=== PATIENT | female | born 1965 ===

== ENCOUNTER 2018-09-01 08:37 | Inpatient (IN) | payer MEDICAID, OTHER ==
[~2018-09-01] VITALS: Ht 154.9 cm; Wt 50.0 kg
[2018-09-01 09:00] LABS: BASOPHILS % (AUTO) 0.7 % (0.0-2.0); EOSINOPHILS % (AUTO) 1.3 % (1.0-6.0); HEMATOCRIT 38.9 % (36-46); HEMOGLOBIN 12.9 g/dL (12.0-16.0); LYMPHOCYTES # (AUTO) 1.9 K/uL (1.0-4.8); LYMPHOCYTES % (AUTO) 24.3 % (22.0-44.0); MEAN CORPUSCULAR HEMOGLOBIN 28.5 pg (26.0-34.0); MEAN CORPUSCULAR HGB CONC 33.1 G/dL (31.0-37.0); MEAN CORPUSCULAR VOLUME 86 fL (80-100); MONOCYTES # (AUTO) 0.8 K/uL (0.1-1.0); MONOCYTES % (AUTO) 10.1 % (2.0-9.0); NEUTROPHILS # (AUTO) 4.9 K/uL (1.8-7.7); NEUTROPHILS % (AUTO) 63.6 % (40.0-70.0); PLATELET COUNT (AUTO) 300 K/uL (150-450); RED BLOOD CELL COUNT(AUTO) 4.53 MIL/uL (4.00-5.20); RED CELL DISTRIBUTION WIDTH 13.5 % (11.5-14.5)
[2018-09-01 09:08] LABS: AMPHET/METH SCREEN,URINE POSITIVE (NEGATIVE); BARBITURATE SCREEN, URINE NEGATIVE (NEGATIVE); BENZODIAZEPINES SCREEN,URINE NEGATIVE (NEGATIVE); CANNABINOID SCREEN,URINE NEGATIVE (NEGATIVE); COCAINE SCREEN,URINE NEGATIVE (NEGATIVE); METHADONE SCREEN, URINE NEGATIVE (NEGATIVE); OPIATE SCREEN,URINE NEGATIVE (NEGATIVE)
[2018-09-01 09:09] LABS: PHENCYCLIDINE SCREEN,URINE NEGATIVE (NEGATIVE)
[2018-09-01 09:10] LABS: GLUCOSE,POINT OF CARE 106 MG/DL (70-110)
[2018-09-01 09:14] LABS: ALANINE AMINOTRANSFERASE 25 U/L (12-78); ALBUMIN 3.7 g/dL (3.4-5.0); ALKALINE PHOSPHATASE 83 U/L (46-116); ANION GAP 12 mmol/L (8-16); ASPARTATE AMINOTRANSFERASE 15 U/L (15-37); BILIRUBIN,TOTAL 0.5 mg/dL (0.1-1.0); CALCIUM, TOTAL 9.1 mg/dL (8.8-10.5); CARBON DIOXIDE 26 mmol/L (22-29); CHLORIDE 105 mmol/L (98-107); CREATININE 0.93 mg/dL (0.60-1.30); GLOMERULAR FILTR. RATE CALC > 60 mL/min (>60); GLUCOSE,RANDOM 95 mg/dL (70-110); SODIUM SERUM 143 mmol/L (136-145); TOTAL PROTEIN, SERUM 7.2 g/dL (6.4-8.2); UREA NITROGEN, BLOOD 9 mg/dL (7-18)
[2018-09-01 09:15] LABS: POTASSIUM 2.8 mmol/L (3.5-5.1)
[2018-09-01] MEDS ORDERED: POTASSIUM CHLORIDE 20 MEQ ER TABLET PO ONE ×2 (09:30→17:45)
[2018-09-01 09:33] LABS: APPEARANCE,URINE TURBID (CLEAR); BILIRUBIN,URINE NEGATIVE (NEGATIVE); GLUCOSE, URINE (UA) NEGATIVE (NEGATIVE); KETONES,URINE NEGATIVE (NEGATIVE); LEUKOCYTE ESTERASE ,URINE SMALL (NEGATIVE); NITRATE,URINE NEGATIVE (NEGATIVE); OCCULT BLOOD,URINE NEGATIVE (NEGATIVE); PROTEIN,URINE NEGATIVE (NEGATIVE)
[2018-09-01 09:58] LABS: AMORPHOUS SEDIMENT,UR Many /LPF (None Seen); BACTERIA,URINE None Seen /HPF (None Seen); CALCIUM OXALATE CRYSTALS,UR Few /LPF (None Seen); RBC,URINE 0-2 /HPF (0-2); SQUAMOUS EPITHELIAL CELL,UR Few /LPF (None Seen); WBC,URINE 0-2 /HPF (0-5)
[2018-09-01] MEDS: HALOPERIDOL 5 MG TABLET PO PRN (12:32)
[2018-09-01] MEDS: LORazepam 2 MG TABLET PO PRN (12:32)
[2018-09-01 12:55] LABS: CHOL/HDL RATIO 2.7 (3.9-5.7); CHOLESTEROL 188 mg/dL (131-200); HCG,QUANTITATIVE 2 mIU/mL (0-6); HDL CHOLESTEROL 69 mg/dL (40-60); LDL CHOL (CALC.) 108 mg/dL (0-130); TRIGLYCERIDES 57 mg/dL (15-150)
[2018-09-01 14:00] VITALS: BP 130/85
[2018-09-01 16:29] VITALS: BP 111/82
[2018-09-01 17:30] VITALS: BP 109/75
[2018-09-01 17:54] VITALS: BP 109/75
[2018-09-02 00:06] VITALS: BP 130/60
[2018-09-02] MEDS: LORazepam 2 MG TABLET PO PRN (02:06)
[2018-09-02] MEDS: HALOPERIDOL 5 MG TABLET PO PRN (02:06)
[2018-09-02 08:10] VITALS: BP 100/69
[2018-09-02 11:31] VITALS: BP 147/87
[2018-09-02 16:07] VITALS: BP 103/57
[2018-09-03] VITALS: BP 124/82
[2018-09-03] MEDS: HALOPERIDOL 5 MG TABLET PO PRN (00:42)
[2018-09-03] MEDS: ZOLPIDEM TARTRATE 10 MG TABLET PO PRN (00:42)
[2018-09-03] MEDS: LORazepam 2 MG TABLET PO PRN (00:42)
[2018-09-03 08:10] VITALS: BP 124/66
[2018-09-04 00:02] VITALS: BP 113/87
[2018-09-04] MEDS: ZOLPIDEM TARTRATE 10 MG TABLET PO PRN (00:05)
[2018-09-04] MEDS: HALOPERIDOL 5 MG TABLET PO PRN (00:05)
[2018-09-04] MEDS: LORazepam 2 MG TABLET PO PRN (00:05)
[2018-09-04 08:23] VITALS: BP 100/68
[2018-09-04] MEDS ORDERED: GuaiFENesin/D-METHORPHAN [SUGAR-FREE] 200-20MG/10 ML SYRUP UDCUP PO PRN (13:30)
[2018-09-04] MEDS ORDERED: MAG HYDROX/AL HYDROX/SIMETH ES 30 ML SUSPENSION UDCUP PO PRN (13:30)
[2018-09-04] MEDS ORDERED: PETROLATUM,WHITE 28 GM JELLY TP PRN (13:30)
[2018-09-04] MEDS ORDERED: ALBUTEROL SULFATE HFA 90 MCG/PUFF 8 GM INHALER IH PRN (13:30)
[2018-09-04] MEDS ORDERED: LOPERAMIDE HCL 2 MG CAPSULE PO PRN (13:30)
[2018-09-04] MEDS ORDERED: IBUPROFEN 400 MG TABLET PO PRN (13:30)
[2018-09-04] MEDS ORDERED: DOCUSATE SODIUM 100 MG CAPSULE PO PRN (13:30)
[2018-09-04] MEDS ORDERED: ONDANSETRON HCL 4 MG TABLET PO PRN (13:30)
[2018-09-04] MEDS ORDERED: ACETAMINOPHEN 325 MG TABLET PO PRN (13:30)
[2018-09-04] MEDS ORDERED: CloNIDine HCL 0.1 MG TABLET PO PRN (13:30)
[2018-09-04] MEDS ORDERED: NICOTINE 14 MG/24 HOUR PATCH TD PRN (13:30)
[2018-09-04] MEDS ORDERED: MAGNESIUM HYDROXIDE SUSPENSION 30 ML UDCUP PO PRN (13:30)
[2018-09-04] MEDS: CIPROFLOXACIN HCL 250 MG TABLET PO SCH (16:17)
[2018-09-04 16:19] VITALS: BP 143/84
[2018-09-04] MEDS ORDERED: RisperiDONE 0.5 MG TABLET PO SCH (21:00)
[2018-09-04] MEDS ORDERED: SERTRALINE HCL 50 MG TABLET PO SCH (21:00)
[2018-09-05 05:11] VITALS: BP 102/66
[2018-09-05] MEDS: CIPROFLOXACIN HCL 250 MG TABLET PO SCH ×2 (08:05→16:33)
[2018-09-05 08:11] VITALS: BP 109/69
[2018-09-05] MEDS: RisperiDONE 1 MG TABLET PO SCH ×2 (08:45→16:33)
[2018-09-05 16:16] VITALS: BP 105/77
[2018-09-05] MEDS: LORazepam 2 MG TABLET PO PRN (16:33)
[2018-09-05] MEDS: HALOPERIDOL 5 MG TABLET PO PRN (16:33)
[2018-09-06 05:49] VITALS: BP 110/72
[2018-09-06 08:09] VITALS: BP 119/83
[2018-09-06 08:12] LABS: BASOPHILS % (AUTO) 0.5 % (0.0-2.0); EOSINOPHILS % (AUTO) 2.8 % (1.0-6.0); HEMATOCRIT 36.5 % (36-46); HEMOGLOBIN 12.1 g/dL (12.0-16.0); LYMPHOCYTES # (AUTO) 2.1 K/uL (1.0-4.8); LYMPHOCYTES % (AUTO) 36.7 % (22.0-44.0); MEAN CORPUSCULAR HEMOGLOBIN 28.9 pg (26.0-34.0); MEAN CORPUSCULAR VOLUME 88 fL (80-100); MONOCYTES # (AUTO) 0.5 K/uL (0.1-1.0); MONOCYTES % (AUTO) 8.1 % (2.0-9.0); NEUTROPHILS % (AUTO) 51.9 % (40.0-70.0); PLATELET COUNT (AUTO) 229 K/uL (150-450); RED BLOOD CELL COUNT(AUTO) 4.17 MIL/uL (4.00-5.20)
[2018-09-06] MEDS: RisperiDONE 1 MG TABLET PO SCH ×2 (08:26→16:33)
[2018-09-06] MEDS: CIPROFLOXACIN HCL 250 MG TABLET PO SCH ×2 (08:26→16:32)
[2018-09-06 08:52] LABS: HEMOGLOBIN A1C 5.9 % (4.5-6.2)
[2018-09-06 08:55] LABS: ALANINE AMINOTRANSFERASE 17 U/L (12-78); ALBUMIN 3.1 g/dL (3.4-5.0); ALKALINE PHOSPHATASE 73 U/L (46-116); ANION GAP 6 mmol/L (8-16); ASPARTATE AMINOTRANSFERASE 11 U/L (15-37); BILIRUBIN,TOTAL 0.3 mg/dL (0.1-1.0); CALCIUM, TOTAL 8.8 mg/dL (8.8-10.5); CARBON DIOXIDE 28 mmol/L (22-29); CHLORIDE 110 mmol/L (98-107); CHOL/HDL RATIO 3.3 (3.9-5.7); CHOLESTEROL 170 mg/dL (131-200); CREATININE 0.84 mg/dL (0.60-1.30); GLOMERULAR FILTR. RATE CALC > 60 mL/min (>60); GLUCOSE,RANDOM 93 mg/dL (70-110); HDL CHOLESTEROL 52 mg/dL (40-60); LDL CHOL (CALC.) 107 mg/dL (0-130); SODIUM SERUM 144 mmol/L (136-145); THYROID STIMULATING HORMONE 0.24 uIU/mL (0.36-3.74); TOTAL PROTEIN, SERUM 5.9 g/dL (6.4-8.2); TRIGLYCERIDES 56 mg/dL (15-150); UREA NITROGEN, BLOOD 17 mg/dL (7-18)
[2018-09-06 16:06] VITALS: BP 107/60
[2018-09-06] MEDS: LORazepam 2 MG TABLET PO PRN (16:33)
[2018-09-06] MEDS: HALOPERIDOL 5 MG TABLET PO PRN (16:33)
[2018-09-07 06:31] VITALS: BP 110/68
[2018-09-07] MEDS: CIPROFLOXACIN HCL 250 MG TABLET PO SCH (08:14)
[2018-09-07] MEDS: RisperiDONE 1 MG TABLET PO SCH ×2 (08:14→16:11)
[2018-09-07 08:47] VITALS: BP 108/60
[2018-09-07 16:27] VITALS: BP 109/72
[2018-09-07] MEDS ORDERED: DiphenhydrAMINE HCL 25 MG CAPSULE PO ONE (18:15)
[2018-09-08 02:54] VITALS: BP 110/68
[2018-09-08] MEDS: RisperiDONE 1 MG TABLET PO SCH ×2 (08:17→16:15)
[2018-09-08 08:24] VITALS: BP 112/79
[2018-09-08 13:00] VITALS: BP 126/91
[2018-09-08] MEDS ORDERED: RISP1 PO (15:42)
== END 2018-09-08 18:25 | disposition home or self-care (01) | DRG 750 ==
LOC: EMS 08:39 → AHU 13:01 → B3A 17:48
PROVIDERS: ADMIT Psychiatry & Neurology Child & Adolescent Psychiatry; ATTEND Psychiatry & Neurology Child & Adolescent Psychiatry
DX: F20.0 Paranoid schizophrenia (principal); F29 Unspecified psychosis not due to a substance or known physiological condition; E87.6 Hypokalemia; F10.10 Alcohol abuse, uncomplicated; I10 Essential (primary) hypertension; N39.0 Urinary tract infection, site not specified; F19.11 Other psychoactive substance abuse, in remission; W18.39XA Other fall on same level, initial encounter; Y93.89 Activity, other specified; Y92.002 Bathroom of unspecified non-institutional (private) residence as the place of occurrence of the external cause; Y99.8 Other external cause status; Z88.0 Allergy status to penicillin; Z59.0 Homelessness
CPT/HCPCS: 83036; 84132; 84443; G0480